=== PATIENT | female | born 1945 | race Caucasian/White ===

== ENCOUNTER 2019-04-16 11:57 | Emergency (ER) | payer MEDICARE ==
[2019-04-16] MEDS ORDERED: Lidocaine 1% w/Epinephrine 1:100K 20 ML VIAL ONE (14:03)
[2019-04-16] MEDS ORDERED: diphenhydrAMINE 50 MG/ML VIAL ONE (14:21)
[2019-04-16] MEDS ORDERED: Metoclopramide HCl 10 MG/2 ML VIAL ONE (14:21)
--- NOTE | 2019-04-16 14:35 | CT ---
HEAD CT WITHOUT IV CONTRAST: HISTORY: Injury from trauma, fall. FINDINGS: Prominent focal right posterior parietal scalp injury and hematoma. No evidence for associated skull fracture. No focal mass or midline shift. No intra- or extraaxial hemorrhage. Sinuses appear sivakumar r of acute process. Status post left mastoidectomy. IMPRESSION: Prominent right posterior parietal scalp swelling and hematoma. No mass or bleed or other acute proc ess. POS: OFF
--- NOTE | 2019-04-16 14:39 | CT ---
CT CERVICAL SPINE NONCONTRAST: DATE: 04/16/2019. HISTORY: A 74-year-old female status post acute cervical trauma from fall. FINDINGS: There are no jumped or perched facets. There is no evidence of acute fracture. The vertebral body h eights are maintained. There is no prevertebral soft tissue swelling. IMPRESSION: No evidence of acute fracture or acute traumatic subluxation. nyla [] POS: [facility]
== END 2019-04-16 15:00 | disposition home or self-care (01) ==
LOC: ERS 11:57
DX: S01.01XA Laceration without foreign body of scalp, initial encounter (principal); S16.1XXA Strain of muscle, fascia and tendon at neck level, initial encounter; I10 Essential (primary) hypertension; W01.198A Fall on same level from slipping, tripping and stumbling with subsequent striking against other object, initial encounter
CPT/HCPCS: 12002; 70450; 72125; J1200; J2765

== ENCOUNTER 2023-10-08 10:27 | Outpatient (CLI) | payer MEDICARE | END 2023-10-08 10:28 | disposition home or self-care (01) | LOC: BICMAMMO 10:27 | PROVIDERS: ATTEND Internal Medicine | DX: M85.89 Other specified disorders of bone density and structure, multiple sites (principal); M81.0 Age-related osteoporosis without current pathological fracture | CPT/HCPCS: 77080 ==